=== PATIENT | male | born 1955 | race Caucasian/White ===

== ENCOUNTER 2016-06-12 07:20 | Emergency (ER) ==
[2016-06-12] MEDS ORDERED: NS 1,000 ML IV ONE (07:38)
--- NOTE | 2016-06-12 07:44 | EKG Report ---
Test Performed on : 06/12/2016 07:38:36 AM Test Reason : SYNCOPE Blood Pressure : / mmHG Vent. Rate : 085 BPM Atrial Rate : 085 BPM P-R Int : 154 ms QRS Dur : 096 ms QT Int : 354 ms P-R-T Axes : 021 066 031 degrees QTc Int : 421 ms Normal sinus rhythm. Normal ECG No previous ECGs available Unconfirmed Result
--- NOTE | 2016-06-12 08:30 | Diag Imaging Result Document ---
PROCEDURE NAME: HEAD W/O CONTRAST - 06/12/2016 CT BRAIN WITHOUT CONTRAST: TECHNIQUE: Dose-reduction technique not used. COMPARISON: No comparison films. FINDINGS: No parenchymal hemorrhage. No epidural or subdural hematoma. No subarachnoid hemorrhage. There is atrophy with chronic microvascular ischemic changes. No mass identified on this noncontrasted exam. No sinus opacification and no air fluid levels. IMPRESSION: 1. No hemorrhage. 2. Mild atrophy with mild microvascular ischemic changes. A preliminary report was given at 8:18 a.m.
--- NOTE | 2016-06-12 08:41 | Diag Imaging Result Document ---
PROCEDURE NAME: CHEST-PORTABLE - 06/12/2016 AP PORTABLE CHEST: TIME: 0810 hours. FINDINGS: There is no evidence of acute cardiac or pulmonary disease. There are no previous studies available for comparison. IMPRESSION: No acute disease.
[2016-06-12 08:58] LABS: BASO% 0.1 % (0.0-0.8); EOS# 0.18 X1000 (0.0-0.7); EOS% 1.3 % (0.0-10.0); HEMATOCRIT 47.6 % (42.0-52.0); HEMOGLOBIN 16.3 g/dL (14.0-18.0); IMM GRAN# 0.03 X1000 (0.0-0.04); IMM GRAN% 0.2 % (0.0-0.5); LYMPH# 0.59 X1000 (1.2-3.4); LYMPH% 4.2 % (20.5-51.1); MANUAL DIFF NEEDED? YES; MCH 30.8 PG (27-31); MCHC 34.2 g/dL (33-37); MONO# 0.74 X1000 (0.11-0.59); MONO% 5.3 % (1.7-9.3); MPV 9.7 FL (7.4-10.4); NEUT% 88.9 % (42.2-75.2); PLT 236 X1000 (130-400); RBC 5.29 XMIL (4.7-6.1)
[2016-06-12 09:06] LABS: INR 1.04; PTT 24.7 Seconds (22.0-36.0)
[2016-06-12 09:13] LABS: AGAP 12; ALBUMIN 4.2 g/dL (3.5-5.0); ALKALINE PHOSPHATASE 86 U/L (32-122); BUN 14 mg/dL (8-22); CALCIUM 9.2 mg/dL (8.8-10.2); CHLORIDE 107 mmol/L (98-107); COSMO 286; GOT 16 U/L (10-34); GPT 20 U/L (10-44); SODIUM 143 mmol/L (136-145); TCO2 24 mmol/L (25-35); TOTAL BILIRUBIN 0.34 mg/dL (0.20-1.00); TOTAL PROTEIN 7.2 g/dL (6.3-8.3)
--- NOTE | 2016-06-12 09:43 | ED EKG INTERP ---
EKG Interpretation - EKG Time of EKG reading by physician:: 07:38 EKG Read and Signed by:: Kelvin Mccall EKG Interpretation (*Must complete 3 of following elements*): Normal Rate: 85 Rhythm: NSR [place]: normal QRS: normal DE Interval: normal ST Wave: normal
--- NOTE | 2016-06-12 09:49 | PROVIDER DOCUMENTATION ---
HPI-Psychological Disorder - General Source: patient - History of Present Illness-Psych Onset/Duration: reports: just prior to arrival Timing: reports: gone now Situational problems related to:: reports: N/A Psychiatric Complaints: reports: denies symptoms Previous psych related hospitalizations?: No Similar Symptoms Previously?: No Recently seen or treated by another doctor?: No <Kelvin Mccall - Last Filed: 06/12/16 12:34> <Missael Montano - Last Filed: 06/12/16 12:36> - General Chief Complaint: Syncope Stated Complaint: syncope, hx dementia Time Seen by Provider: 06/12/16 07:36 Allergies/Adverse Reactions: Patient Allergies Allergy/AdvReac Type Severity Reaction Status Date / Time No Known Allergies Allergy Verified 06/12/16 11:53 Home Medications: Metformin E.r. [Glucophage Xr] 500 mg PO DAILY 06/12/16 Rosuvastatin Calcium [Crestor] 10 mg PO DAILY 06/12/16 - History of Present Illness-Psych Nature of Presenting Problem: Pt is from a shelter. Stating that he passed out and had 2 seizure episode. Pt has no day care center director with him at ER, and he could not provide much info. Pt is A &O X 3 and talking w/o trouble. (Kelvin Mccall) Review of Systems - Adult - REVIEW OF SYSTEMS - ADULT Constitutional: reports: no symptoms reported Eyes: reports: no symptoms reported Ears, Nose, Mouth & Throat: reports: no symptoms reported Cardiovascular: reports: no symptoms reported Respiratory: reports: no symptoms reported Gastrointestinal: reports: no symptoms reported Genitourinary: reports: no symptoms reported Musculoskeletal: reports: no symptoms reported Integumentary: reports: no symptoms reported Neurological: reports: see HPI, seizure, syncope Psychiatric: reports: no symptoms reported Hematologic/Lymphatic: reports: no symptoms reported All Other Systems: Reviewed and Negative <Kelvin Mccall - Last Filed: 06/12/16 12:34> Physical Exam-Psych Focus - Physical Exam-Psych Initial Vital Signs Reviewed: Yes Appearance: appropriate appearance, no apparent destress, no memory impairment, alert. negative: combative, disheveled, impaired insight, impaired recent memory, impaired remote memory, lethargic Neurological: alert, oriented x 3. negative: anxious, depressed affect, disoriented x 3, flat, no response to pain Behavior/Eye Contact/Speech: cooperative, good eye contact, normal speech Thoughts/Hallucinations: normal thought pattern, no apparent hallucination. negative: delusions, grandiose, paranoid HENMT: normocephalic/atraumatic, moist mucous membranes Neck: non-tender, full range of motion Respiratory: chest non-tender, lungs clear, normal breath sounds, no pleuratic chest pain, no respiratory distress Cardiovascular: normal peripheral pulses, regular rate, rhythm, no edema, no gallop Abdominal Exam: normal bowel sounds, non tender, soft, no organomegaly Back Exam: normal inspection, no CVA tenderness Extremity: normal range of motion, non-tender, normal gait, normal inspection Integumentary: normal color, normal turgor, warm/dry <Kelvin Mccall X - Last Filed: 06/12/16 12:34> Progress <Kelvin Mccall X - Last Filed: 06/12/16 12:34> - XRAY 1 XRAY Study: Chest Impression: Normal XRAY Interpretation: nad - CT/MRI 1 CT Study: Head Impression: Abnormal CT Results: no hemorrhage, mild atrophy <Missael Montano - Last Filed: 06/12/16 12:36> - PLAN OF CARE/RESULTS Progress/Plan/Lab Results: Vital Signs Temp Pulse Resp BP Pulse Ox 06/12/16 12:00 93 H 18 102/70 98 06/12/16 11:19 93 H 20 102/74 97 06/12/16 10:27 85 22 113/68 97 06/12/16 08:55 85 23 98/76 95 06/12/16 07:20 97.9 F 88 18 113/69 93 L No Known Allergies Allergy (Verified 06/12/16 11:53) Metformin E.r. [Glucophage Xr] 500 mg PO DAILY 06/12/16 Rosuvastatin Calcium [Crestor] 10 mg PO DAILY 06/12/16 I&O 06/11/16 06/12/16 06/13/16 06:59 06:59 06:59 Output Total 50 Balance -50 Laboratory 06/12/16 06/12/16 06/12/16 11:50 11:50 08:40 WBC RBC Hgb Hct MCV MCH MCHC RDW Std Deviation Plt Count MPV Immature Gran % (Auto) Neut % (Auto) Lymph % (Auto) [place] % (Auto) Eos % (Auto) Baso % (Auto) Immature Gran # (Auto) Neut # (Auto) Lymph # (Auto) [place] # (Auto) Eos # (Auto) Baso # (Auto) Segmented Neutrophils Band Neutrophils Lymphocytes Monocytes Eosinophils Basophils Metamyelocytes Myelocytes Promyelocytes Nucleated RBCs Atypical Lymphocytes Blast Cells Hypochromia Vacuolization Toxic Granulation Dohle Bodies Large Platelets Polychromasia Poikilocytosis Basophilic Stippling Anisocytosis Microcytosis Macrocytosis Spherocytes Sickle Cells Target Cells Ovalocytes Stomatocytes [place] Bodies [place] Cells Unidentified Cells Schistocytes PT INR PTT (Actin FS) Sodium Potassium Chloride Carbon Dioxide Anion Gap BUN Creatinine Estimated GFR/1.73 m2 BUN/Creatinine Ratio Glucose Calculated Osmolality Calcium Total Bilirubin AST ALT Alkaline Phosphatase Troponin T [id number]-Thwojfisnrj Pept 69 Total Protein Albumin Globulin Albumin/Globulin Ratio Plasma Lactate Urine Source CLEAN CATCH Urine Color YELLOW Urine Turbidity CLEAR Urine pH 5.0 Ur Specific [place] 1.024 Urine Protein TRACE A Ur Glucose (Stick) NEGATIVE Ur Ketones (Stick) TRACE A Urine Blood NEGATIVE Urine Nitrite NEGATIVE Urine Bilirubin NEGATIVE Urobilinogen Dipstick NORMAL Urine Leukocytes NEGATIVE Urine WBC (Auto) 10-20 A Urine RBC (Auto) 10-20 A U Epithel Cells (Auto) <10 Urine Bacteria (Auto) NEGATIVE Urine Opiates Screen NONE DETECTED Ur Oxycodone Screen NONE DETECTED Ur Methadone, Qual NONE DETECTED Ur Barbiturates Screen NONE DETECTED Ur Phencyclidine Scrn NONE DETECTED Ur Amphetamines Screen NONE DETECTED U Benzodiazepines Scrn NONE DETECTED Urine Cocaine Screen NONE DETECTED U Cannabinoids Screen NONE DETECTED Plasma/Serum Ethyl Alc 06/12/16 06/12/16 06/12/16 08:40 08:40 08:40 WBC RBC Hgb Hct MCV MCH MCHC RDW Std Deviation Plt Count MPV Immature Gran % (Auto) Neut % (Auto) Lymph % (Auto) [place] % (Auto) Eos % (Auto) Baso % (Auto) Immature Gran # (Auto) Neut # (Auto) Lymph # (Auto) [place] # (Auto) Eos # (Auto) Baso # (Auto) Segmented Neutrophils Band Neutrophils Lymphocytes Monocytes Eosinophils Basophils Metamyelocytes Myelocytes Promyelocytes Nucleated RBCs Atypical Lymphocytes Blast Cells Hypochromia Vacuolization Toxic Granulation Dohle Bodies Large Platelets Polychromasia Poikilocytosis Basophilic Stippling Anisocytosis Microcytosis Macrocytosis Spherocytes Sickle Cells Target Cells Ovalocytes Stomatocytes [place] Bodies [place] Cells Unidentified Cells Schistocytes PT 11.0 INR 1.04 PTT (Actin FS) 24.7 Sodium Potassium Chloride Carbon Dioxide Anion Gap BUN Creatinine Estimated GFR/1.73 m2 BUN/Creatinine Ratio Glucose Calculated Osmolality Calcium Total Bilirubin AST ALT Alkaline Phosphatase Troponin T < 0.010 [id number]-G-Oazekfrgmlj Pept Total Protein Albumin Globulin Albumin/Globulin Ratio Plasma Lactate 1.5 Urine Source Urine Color Urine Turbidity Urine pH Ur Specific [place] Urine Protein Ur Glucose (Stick) Ur Ketones (Stick) Urine Blood Urine Nitrite Urine Bilirubin Urobilinogen Dipstick Urine Leukocytes Urine WBC (Auto) Urine RBC (Auto) U Epithel Cells (Auto) Urine Bacteria (Auto) Urine Opiates Screen Ur Oxycodone Screen Ur Methadone, Qual Ur Barbiturates Screen Ur Phencyclidine Scrn Ur Amphetamines Screen U Benzodiazepines Scrn Urine Cocaine Screen U Cannabinoids Screen Plasma/Serum Ethyl Alc 06/12/16 06/12/16 06/12/16 08:40 08:40 08:40 WBC 13.96 H RBC 5.29 Hgb 16.3 Hct 47.6 MCV 90.0 MCH 30.8 MCHC 34.2 RDW Std Deviation 12.9 Plt Count 236 MPV 9.7 Immature Gran % (Auto) 0.2 Neut % (Auto) 88.9 H Lymph % (Auto) 4.[address] [place] % (Auto) 5.3 Eos % (Auto) 1.3 Baso % (Auto) 0.1 Immature Gran # (Auto) 0.03 Neut # (Auto) 12.40 H Lymph # (Auto) 0.[address] [place] # (Auto) 0.74 H Eos # (Auto) 0.18 Baso # (Auto) 0.02 Segmented Neutrophils Cancelled Band Neutrophils Cancelled Lymphocytes Cancelled Monocytes Cancelled Eosinophils Cancelled Basophils Cancelled Metamyelocytes Cancelled Myelocytes Cancelled Promyelocytes Cancelled Nucleated RBCs Cancelled Atypical Lymphocytes Cancelled Blast Cells Cancelled Hypochromia Cancelled Vacuolization Cancelled Toxic Granulation Cancelled Dohle Bodies Cancelled Large Platelets Cancelled Polychromasia Cancelled Poikilocytosis Cancelled Basophilic Stippling Cancelled Anisocytosis Cancelled Microcytosis Cancelled Macrocytosis Cancelled Spherocytes Cancelled Sickle Cells Cancelled Target Cells Cancelled Ovalocytes Cancelled Stomatocytes Cancelled [place] Bodies Cancelled [place] Cells Cancelled Unidentified Cells Cancelled Schistocytes Cancelled PT INR PTT (Actin FS) Sodium 143 Potassium 5.0 Chloride 107 Carbon Dioxide 24 L Anion Gap 12 BUN 14 Creatinine 0.9 Estimated GFR/1.73 m2 > 60 BUN/Creatinine Ratio 16 Glucose 105 H Calculated Osmolality 286 Calcium 9.2 Total Bilirubin 0.34 AST 16 ALT 20 Alkaline Phosphatase 86 Troponin T Wiz-A-Cabawxbbpde Pept Total Protein 7.2 Albumin 4.2 Globulin 3.0 Albumin/Globulin Ratio 1.4 Plasma Lactate Urine Source Urine Color Urine Turbidity Urine pH Ur Specific [place] Urine Protein Ur Glucose (Stick) Ur Ketones (Stick) Urine Blood Urine Nitrite Urine Bilirubin Urobilinogen Dipstick Urine Leukocytes Urine WBC (Auto) Urine RBC (Auto) U Epithel Cells (Auto) Urine Bacteria (Auto) Urine Opiates Screen Ur Oxycodone Screen Ur Methadone, Qual Ur Barbiturates Screen Ur Phencyclidine Scrn Ur Amphetamines Screen U Benzodiazepines Scrn Urine Cocaine Screen U Cannabinoids Screen Plasma/Serum Ethyl Alc Orders Category Date Time Status Cardiac Monitoring DIRECTED Care 06/12/16 07:37 Active Finger Stick Blood Sugar (ED) DIRECTED Care 06/12/16 07:37 Hold Saline Loc NOW Care 06/12/16 07:37 Active CHEST-PORTABLE [RAD] Stat Exams 06/12/16 07:37 Completed HEAD W/O CONTRAST [CT] Stat Exams 06/12/16 07:37 Completed ALCOHOL BLOOD Stat Lab 06/12/16 08:40 Completed CBC WITH ELECTRONIC DIFF [HEME] Stat Lab 06/12/16 08:40 Completed COMPREHENSIVE METABOLIC PANEL [CHEM] Stat Lab 06/12/16 08:40 Completed LACTATE, PLASMA [CHEM] Stat Lab 06/12/16 08:40 Completed PRO B-NATRIURETIC PEPTIDE Stat Lab 06/12/16 08:40 Completed PROTIME WITH INR [COAG] Stat Lab 06/12/16 08:40 Completed PTT [COAG] Stat Lab 06/12/16 08:40 Completed TROPONIN T Stat Lab 06/12/16 08:40 Completed UA NIMS W/REFLEX CULT [URINALYSIS] Stat Lab 06/12/16 11:50 Completed URINE CULTURE [RM] Routine Lab 06/12/16 12:32 Received URINE DRUG SCREEN Stat Lab 06/12/16 11:50 Completed 0.9% Sodium Chloride Inj [Ns] 1,000 ml Med 06/12/16 07:38 Discontinued IV 250 mls/hr CefTRIAXONE 1 GM/NS [Rocephin 1 gm/Ns] 50 ml Med 06/12/16 12:34 Active IV NOW Pulse Oximetry Stat Oth 06/12/16 07:37 Active EKG [EKG] Stat Ther 06/12/16 07:37 Draft pt will be d/c home f/u with pcp, rx given, caregivers understood instructions and results, pt was clinically stable (Missael Montano) Departure <Kelvin Mccall - Last Filed: 06/12/16 12:34> - Departure Time of Disposition Order: 12:35 Certified Medical Emergency: Emergent <Missael Montano - Last Filed: 06/12/16 12:36> - Departure DIAGNOSIS: Syncope UTI (urinary tract infection) Qualifiers: Urinary tract infection type: acute cystitis Hematuria presence: without hematuria Qualified Code(s): N30.00 - Acute cystitis without hematuria Disposition: HOME 01 Condition: Stable Additional Instructions: ED Follow Up Instructions: You have been treated by a care provider in the Emergency Department. These instructions are being provided to you so you can have an understanding of how to care for yourself upon discharge. Upon discharge from the Emergency Department, you are responsible for making arrangements for follow-up care by a physician of your choice. Take all prescribed medications as directed. Return to the Emergency Department immediately for any new or worsening symptoms. You may call the Physician Referral phone number at [phone] to obtain a list of Physicians who are taking new patients. Referrals: Valeriy Mayorga [Primary Care Provider] - Call for Appoint. 1-2days Instructions: Urinary Tract Infection, [id number]-[id number], Syncope, [id number]-ky-Fogt Attestation - Scribe Verification/Attestation Scribe:: Missael Montano Acting as Scribe for:: Kelvin Mccall Scribe documention review:: This chart was documented by a scribe and accurately reflects the service the provider performed and the decisions made by the provider. <Missael Montano - Last Filed: 06/12/16 12:36> Physician Attestation - Physician Attestation I, the provider, attest to the following statement:: Kelvin Mccall Physician documentation Attestation:: This documentation recorded by the scribe accurately reflects the service I personally performed and the decisions made by me. <Missael Montano - Last Filed: 06/12/16 12:36>
[2016-06-12 12:13] LABS: URINE MICRO REVIEW NEEDED? NO; URINE SOURCE CLEAN CATCH
[2016-06-12 12:23] LABS: BILIRUBIN URINE NEGATIVE (NEGATIVE); BLOOD URINE NEGATIVE (NEGATIVE); COLOR YELLOW; GLUCOSE URINE NEGATIVE (NEGATIVE); LEUKOCYTES URINE NEGATIVE (NEGATIVE); NITRITE URINE NEGATIVE (NEGATIVE); PROTEIN URINE TRACE mg/dL (NEGATIVE); SP GRAVITY URINE 1.024; TURBIDITY URINE CLEAR (CLEAR); UR EPITHELIAL CELLS <10 /HPF (<10); URINE BACTERIA NEGATIVE /HPF; URINE CULTURE NEEDED? YES; UROBILINOGEN URINE NORMAL (NORMAL)
[2016-06-12 12:34] LABS: UR AMPHETAMINES QUAL NONE DETECTED (NONE DETECT); UR BARBITUATES QUAL NONE DETECTED (NONE DETECT); UR BENZODIAZEPIN QUAL NONE DETECTED (NONE DETECT); UR CANNABINOIDS QUAL NONE DETECTED (NONE DETECT); UR COCAINE QUAL NONE DETECTED (NONE DETECT); UR METHADONE QUAL NONE DETECTED (NONE DETECT); UR OPIATES QUAL NONE DETECTED (NONE DETECT); UR OXYCODONE QUAL NONE DETECTED (NONE DETECT); UR PCP QUAL NONE DETECTED (NONE DETECT)
[2016-06-12] MEDS ORDERED: ROCEPHIN 1 GM/NS 50 ML IV ONE (12:34)
[2016-06-12 13:13] VITALS: BP 133/89
== END 2016-06-12 13:34 | disposition home or self-care (01) ==
LOC: EDBD → ED 07:20
DX: N30.00 Acute cystitis without hematuria (principal); R55 Syncope and collapse; Z79.899 Other long term (current) drug therapy
CPT/HCPCS: 36415; 70450; 71010; 80053; 81001; 83605; 83880; 84484; 85025; 85610; 85730; 87088; 93005; 96365; G0480; J0696; J7030